=== PATIENT | male | born 2000 ===

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

== ENCOUNTER 2019-10-25 08:07 | Emergency (ER) | payer OTHER ==
[~2019-10-25] VITALS: Ht 170.2 cm; Wt 63.6 kg
[~2019-10-25 08:07] MED LIST: DIFFERIN 0.1% TP; DOXYCYCLINE 10100 MG PO; PREDNISONE20 MG PO
[2019-10-25 08:14] VITALS: BP 120/86; PULSE 57; TEMP 98
== END 2019-10-25 09:00 | disposition home or self-care (01) ==
LOC: COL.ER 08:07
DX: L50.9 Urticaria, unspecified (principal)

== ENCOUNTER 2021-07-20 00:42 | Emergency (ER) | payer OTHER ==
[~2021-07-20] VITALS: Ht 170.2 cm; Wt 61.4 kg
[2021-07-20 01:49] VITALS: BP 120/70; PULSE 72; TEMP 97.9
== END 2021-07-20 01:52 | disposition home or self-care (01) ==
LOC: COL.ER 00:42
DX: S63.501A Unspecified sprain of right wrist, initial encounter (principal); V00.131A Fall from skateboard, initial encounter